=== PATIENT | male | born 1975 | race Caucasian/White ===

== ENCOUNTER → 2020-01-05 15:48 | Outpatient (BNVA) | payer OTHER, SELFPAY | PROVIDERS: Visit Provider Physician Assistant Medical | DX: M75.41 Impingement syndrome of right shoulder (principal) | CPT/HCPCS: 99213 ==

== ENCOUNTER → 2020-01-18 16:27 | Outpatient (BNVA) | payer OTHER, SELFPAY | PROVIDERS: Visit Provider Physician Assistant Medical | DX: M25.811 Other specified joint disorders, right shoulder (principal); M75.81 Other shoulder lesions, right shoulder; M19.011 Primary osteoarthritis, right shoulder | CPT/HCPCS: 99213 ==

== ENCOUNTER 2020-02-02 16:00 | Outpatient (RCR) | payer OTHER, SELFPAY ==
--- NOTE | 2020-02-14 14:47 | MHC.PT.DC ---
[facility] [place] Office [place] Office [place] Office [address] Génesis Reilly [address] [phone] F: [phone] F: [phone] F: [phone] F: [phone] Physical Therapy Discharge Report Diagnosis: R RTC Impingement Date of Surgery: n/a Date of Evaluation: 11/29/19 Date of Discharge: 02/02/20 Treatments to Date: 10 Cancellations to Date: 1 No Shows to Date: 0 Discharge Status: Achieved Goals Improved Function Independent with HEP Discharge Summary: Discharging for primary physical therapist, who is now in another office. Per report, pt has made improvement in strength and function. He is independent with HEP and no increased pain, utilizes proper form Electronically signed by: Krysta Valentino PT DPT Please sign and return to therapist. Thank you for your referral.
== END 2020-02-14 14:48 | disposition other institution (70) ==
LOC: HO.PT 16:00
PROVIDERS: Visit Provider Internal Medicine
DX: M25.811 Other specified joint disorders, right shoulder (principal)
CPT/HCPCS: 97110; 97530

== ENCOUNTER → 2020-02-08 14:01 | Outpatient (BNVA) | payer OTHER, SELFPAY | PROVIDERS: PCP Internal Medicine; Visit Provider Orthopaedic Surgery | DX: M75.41 Impingement syndrome of right shoulder (principal) | CPT/HCPCS: 99212 ==

== ENCOUNTER → 2020-02-10 16:22 | Outpatient (BNVA) | payer OTHER, SELFPAY | PROVIDERS: PCP Internal Medicine; Visit Provider Physician Assistant Medical | DX: M25.811 Other specified joint disorders, right shoulder (principal) | CPT/HCPCS: 99213 ==

== ENCOUNTER → 2021-03-14 10:40 | Outpatient (BNVA) | payer OTHER, SELFPAY | PROVIDERS: PCP Internal Medicine; Visit Provider Physician Assistant | DX: M75.21 Bicipital tendinitis, right shoulder (principal) | CPT/HCPCS: 99203 ==

== ENCOUNTER → 2021-03-20 14:07 | Outpatient (BNVA) | payer OTHER, SELFPAY | PROVIDERS: PCP Internal Medicine; Visit Provider Physician Assistant | DX: M75.21 Bicipital tendinitis, right shoulder (principal) | CPT/HCPCS: 99213 ==